=== PATIENT | male | born 1960 | race Caucasian/White ===

== ENCOUNTER 2021-02-26 19:40 | Emergency (ER) | payer BC ==
[2021-02-26 23:34] VITALS: BP 160/108
== END 2021-02-26 23:36 ==
LOC: ED 19:40
DX: H11.32 Conjunctival hemorrhage, left eye (principal); H21.562 Pupillary abnormality, left eye; I10 Essential (primary) hypertension; W19.XXXA Unspecified fall, initial encounter; W22.03XA Walked into furniture, initial encounter; Y92.22 Religious institution as the place of occurrence of the external cause